=== PATIENT | female | born 1975 | race African-American/Black ===

== ENCOUNTER 2016-04-23 11:29 | Emergency (ER) | payer SELFPAY ==
[2016-04-23 12:22] VITALS: BP 118/74
[2016-04-23] MEDS ORDERED: Acetaminophen/HYDROcodone 325-5 MG Tab PO ONE (13:07)
--- NOTE | 2016-04-23 13:14 | EDM.PDOC ---
ED HPI Trauma - General Chief Complaint: Lower Extremity Injury/Pain Stated Complaint: Groin Pain Time Seen by Provider: 04/23/16 13:00 Source: Reports: Patient History Limitations: Reports: No limitations - History of Present Illness INITIAL COMMENTS - FREE TEXT/NARRATIVE: Patient is a 40-year-old female who presents to the ED complaining of right groin/right hip pain that radiates down the anterior lateral aspect of the right upper thigh. Pain has been present for the past few months aggravated with kneeling and with heavy lifting. 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 Patient has no clear etiology to the cause of pain. She has tried Tylenol and ibuprofen with little improvement. She presents to the ED requesting narcotic pain medications. Occurred When: other (2 months) Method of Injury: unknown Severity: mild, moderate Pain/Injury Location: Reports: other (right groin/hip) Associated Symptoms: Reports: trouble walking (2nd to pain) Allergies/ADRs: Allergies No Known Allergies Allergy (Verified 04/23/16 12:18) Home Medications: Ambulatory Orders . 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 Musculoskeletal History: Reports: Arthritis, Fracture Neurological History: Reports: Headaches, chronic Oncologic (Cancer) History: Reports: Cervix - Past Surgical History Female Surgical History: Reports: D&C Social & Family History - Family History Family Medical History: Noncontributory - Tobacco Use Smoking Status *Q: Current Every Day Smoker Years of Tobacco use: 24 Packs/Tins Daily: 0.2 - Caffeine Use Caffeine Use: Reports: Coffee, Energy drinks, Soda, Tea - Recreational Drug Use Recreational Drug Use: No Review of Systems - Review of Systems Review Of Systems: See Below Musculoskeletal: Reports: joint pain (right hip/groin). Denies: back pain Neurological: Reports: Difficulty Walking (2nd to pain) Trauma Exam - Physical Exam Exam: See Below Exam Limited By: No limitations General Appearance: Reports: alert, WD/WN, no apparent distress Ears: Reports: hearing grossly normal Nose: Reports: normal inspection Throat/Mouth: Reports: Normal voice, No airway compromise Respiratory Exam: Reports: no respiratory distress, no accessory muscle use Cardiovascular: Reports: normal peripheral pulses, regular rate, rhythm GI/Abdominal: Reports: other (Pain is localized inferior to the inguinal ligament. No inguinal or femoral hernias present. No swelling or deformity noted. ) Extremities: Reports: no evidence of injury, pain with movement (abduction/ adduction of right upper leg at the hip. Increased pain with palpation of the inner groin. ) Neurologic: Reports: no motor/sensory deficits, alert, normal mood/affect, oriented x 3 Skin: Reports: Normal color, Warm/dry Course - Vital Signs Last Recorded V/S: Last Vital Signs Temp 98.4 F 04/23/16 12:19 Pulse 84 04/23/16 12:19 Resp 12 04/23/16 12:19 BP 118/74 04/23/16 12:19 Pulse Ox 100 04/23/16 12:19 - Orders/Labs/Meds Meds: Medications Discontinued Medications Generic Name Dose Route Start Last Admin Trade Name Richelle PRN Reason Stop Dose Admin Acetaminophen/Hydrocodone Bitart 1 tab 04/23/16 13:07 04/23/16 13:17 [place] 325-5 Mg PO 04/23/16 13:08 1 tab ONETIME ONE Administration - Re-Assessments/Exams Free Text/Narrative Re-Assessment/Exam: Ordered x-ray of the right hip and [place] 5-325mg PO x1. 04/23/16 13:14 04/23/16 13:54 X-ray of the right hip did not reveal any acute bony abnormalities. Will discharge patient home with instructions. Departure - Departure Time of Disposition: 13:54 Disposition: Home, Self-Care 01 Condition: good Clinical Impression: Right groin pain Instructions: Adductor Muscle Strain Referrals: PCP,None [Primary Care Provider] - Char Medrano PA [Physician Crop Setting Out Machine Operator] - Forms: ED Department Discharge, Return to Work/School Form Additional Instructions: Refrain from activities that cause worsening pain. Utilize tylenol and ibuprofen as needed for pain. Apply ice to the affected area 4 to 6 times daily , 20 minutes in duration, do not apply ice directly on the skin. Can also utilize warm compresses in alternating fashion with ice as needed. Followup with PCP at [facility] for reevaluation and to further discuss PT. Return to the E.D. as needed for any new or worsening symptoms. No driving today since receiving a sedative medication in the E.D.
--- NOTE | 2016-04-23 15:13 | CR ---
Pelvis and right hip: AP view of the pelvis was obtained as well as AP and frog-leg lateral views of the right hip. Comparison: No previous study. Joint spaces within both hips are maintained. Sacroiliac joints are unremarkable. No fracture or other bony abnormality is seen. Impression: 1. No abnormality is identified on AP pelvis or on two-view right hip exam. Diagnostic code #1
== END 2016-04-23 14:06 | disposition home or self-care (01) ==
LOC: JD.ED 11:29
DX: R10.31 Right lower quadrant pain (principal); F17.210 Nicotine dependence, cigarettes, uncomplicated; Z85.41 Personal history of malignant neoplasm of cervix uteri
CPT/HCPCS: 73502; 99283; A9270

== ENCOUNTER 2016-05-31 01:49 | Emergency (ER) | payer SELFPAY ==
[2016-05-31 02:04] VITALS: BP 129/87
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
[2016-05-31] MEDS ORDERED: Ibuprofen 600 MG Tab PO ONE (02:11)
== END 2016-05-31 02:41 | disposition home or self-care (01) ==
LOC: JD.ED 01:49
DX: S00.83XA Contusion of other part of head, initial encounter (principal); S50.02XA Contusion of left elbow, initial encounter; J45.909 Unspecified asthma, uncomplicated; F17.210 Nicotine dependence, cigarettes, uncomplicated; W50.3XXA Accidental bite by another person, initial encounter
CPT/HCPCS: 99284; A9270; 99282

== ENCOUNTER 2016-07-28 16:06 | Emergency (ER) | payer SELFPAY ==
[2016-07-28 16:26] VITALS: BP 135/87
[2016-07-28] MEDS ORDERED: Lidocaine 1% 10 ML MDV INJECT ONE (17:10)
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
== END 2016-07-28 17:40 | disposition home or self-care (01) ==
LOC: JD.ED 16:06
DX: S01.111A Laceration without foreign body of right eyelid and periocular area, initial encounter (principal); F17.210 Nicotine dependence, cigarettes, uncomplicated; J45.909 Unspecified asthma, uncomplicated; M19.90 Unspecified osteoarthritis, unspecified site; W17.89XA Other fall from one level to another, initial encounter
CPT/HCPCS: 12011; 99282; 99283-25